=== PATIENT | male | born 1990 | race Caucasian/White ===

== ENCOUNTER 2016-11-08 04:58 | Emergency (ER) | payer SELFPAY ==
[~2016-11-08] VITALS: Ht 188 cm; Wt 100.0 kg
[2016-11-08 05:18] VITALS: BP 133/85
[2016-11-08] MEDS ORDERED: LIDOCAINE HCL 1% 20ML VIAL (Pyxis) INJ MC ONE (07:30)
[2016-11-08] MEDS ORDERED: BACITRACIN ZINC OINT UDPKT TOP ONE (07:30)
== END 2016-11-08 10:58 | disposition home or self-care (01) ==
LOC: ER 07:40
DX: S61.012A Laceration without foreign body of left thumb without damage to nail, initial encounter (principal); F17.210 Nicotine dependence, cigarettes, uncomplicated; W31.1XXA Contact with metalworking machines, initial encounter; Y93.89 Activity, other specified; Y92.89 Other specified places as the place of occurrence of the external cause; Y99.8 Other external cause status
CPT/HCPCS: 12001; 73130; 99284; J3490; Z7610